=== PATIENT | male | born 1940 | race Caucasian/White ===

== ENCOUNTER 2019-05-24 09:45 | Outpatient (CLI) | payer MEDICARE ==
[2019-05-24 10:54] LABS: #Eosinphils 0.2 thou/uL (0.0-0.7); #Lymphocytes 2.4 thou/uL (1.20-3.40); #Monocytes 0.8 thou/uL (0.11-0.59); #Neutrophils 2.3 thou/uL (1.40-6.50); %Basophils 0.2 % (0.0-1.0); %Eosinophils 3.2 % (0.0-10.0); %Monocytes 13.9 % (0.0-10.0); %Neutrophils 40.7 % (42.0-75.0); Hemoglobin 13.8 g/dL (14.0-18.0); Mean Corpuscular HGB CONC 32.6 g/dL (32.0-36.0); Mean Corpuscular Hemoglobin 30.8 pg (27.0-31.0); Mean Corpuscular Volume 94.4 fL (78.0-98.0); Mean Platelet Volume 6.7 fL (7.4-10.4); Platelet Count 163 thou/uL (130-400); Red Blood Cell (RBC) Count 4.47 mill/uL (4.70-6.10); White Blood Cell (WBC) Count 5.7 thou/uL (4.8-10.8)
[2019-05-24 11:14] LABS: Anion Gap 10 mmol/L (10-20); BUN (Urea Nitrogen) 12 mg/dL (8.4-25.7); Calc. Creatinine Clearance 0 mL/min (70-130); Calcium 9.2 mg/dL (7.8-10.44); Carbon Dioxide 26 mmol/L (23-31); Chloride 109 mmol/L (98-107); Estimated GFR-MDRD 79; Glucose 89 mg/dL (83-110); Potassium 4.6 mmol/L (3.5-5.1); Sodium 140 mmol/L (136-145)
== END 2019-05-24 09:46 | disposition home or self-care (01) ==
LOC: LABBT 09:45
PROVIDERS: ATTEND Surgery
DX: Z01.818 Encounter for other preprocedural examination (principal); K40.90 Unilateral inguinal hernia, without obstruction or gangrene, not specified as recurrent
CPT/HCPCS: 80048; 85025; 93005; 93010

== ENCOUNTER 2019-06-01 05:37 | Day surgery (SDC) | payer MEDICARE ==
[2019-05-24 09:58] VITALS: BMI 24.3
[2019-06-01] MEDS ORDERED: Bupivacaine/Epinephrine 0.25% 30 ML VIAL ONE (06:46)
--- NOTE | 2019-06-05 08:40 | EKG ---
Test Reason : PREOP Blood Pressure : / mmHG Vent. Rate : 054 BPM Atrial Rate : 054 BPM P-R Int : 190 ms QRS Dur : 098 ms QT Int : 476 ms P-R-T Axes : 022 002 014 degrees QTc Int : 451 ms Sinus bradycardia with occasional Premature ventricular complexes Otherwise normal ECG When compared with ECG of 24-MAY-2019 10:17, Minimal criteria for Anterior infarct are no longer Present Confirmed by DR. Adrián SNEED ([id number]) on 06/05/2019 8:39:56 AM Referred By: ANILA Confirmed By:DR. Adrián SNEED
--- NOTE | 2019-06-05 08:40 | EKG ---
Test Reason : PREOP Blood Pressure : / mmHG Vent. Rate : 061 BPM Atrial Rate : 061 BPM P-R Int : 196 ms QRS Dur : 096 ms QT Int : 460 ms P-R-T Axes : 056 -13 007 degrees QTc Int : 463 ms Sinus rhythm with marked sinus arrhythmia with occasional Premature ventricular complexes Otherwise normal ECG When compared with ECG of 01-JUN-2019 06:51, (Unconfirmed) No significant change was found Confirmed by DR. Adrián SNEED ([id number]) on 06/05/2019 8:40:11 AM Referred By: ANILA Confirmed By:DR. Adrián SNEED
== END 2019-06-01 08:28 | disposition home or self-care (01) ==
LOC: SDC 05:37
PROVIDERS: ATTEND Surgery
DX: K40.90 Unilateral inguinal hernia, without obstruction or gangrene, not specified as recurrent (principal); Z53.09 Procedure and treatment not carried out because of other contraindication
CPT/HCPCS: 93005; 93010

== ENCOUNTER 2019-06-28 12:09 | Day surgery (SDC) | payer MEDICARE ==
[2019-06-28] MEDS ORDERED: Bupivacaine HCl 0.5%/Epinephrine 1:200,000/PF 30 ml Vial ONE ×2 (16:00→16:06)
[2019-06-28] MEDS ORDERED: Bupivacaine/Epinephrine 0.25% 30 ML VIAL ONE (16:06)
[2019-06-28] MEDS ORDERED: Lidocaine 2% PF 5 ML VIAL ONE (16:06)
[2019-06-28] MEDS ORDERED: Bupivacaine PF 0.5% 30 ML VIAL ONE (16:28)
[2019-06-28] MEDS ORDERED: Fentanyl 100 MCG/2 ML VIAL ONE (16:29)
--- NOTE | 2019-06-28 17:57 | OP ---
DATE OF PROCEDURE: 06/28/2019 PREOPERATIVE DIAGNOSIS: Right inguinal hernia. POSTOPERATIVE DIAGNOSIS: Right inguinal hernia. PROCEDURE PERFORMED: Right inguinal hernia repair with mesh, PHS extended. ANESTHESIA: General. ESTIMATED BLOOD LOSS: Minimal. COMPLICATIONS: None. SPECIMEN: None. FINDINGS: Right inguinal hernia. DESCRIPTION OF PROCEDURE: The patient was taken to the operating room and laid supine on the operating room table. After general anesthetic was obtained the bilateral groins and abdomen were shaved, prepped, and draped in a sterile fashion. Oblique incision was made in the right lower quadrant above the pubic tubercle. Cautery was dissected down through Jerry's to expose external oblique. External oblique fibers opened along the course of the external ring. The contents in the inguinal canal were dissected from backside of the external oblique. The ilioinguinal nerve was found and segmentally high, removed to prevent postop pain. Dissection superiorly and medially on the cord showed there to be an indirect hernia sac. This was dissected free from the other cord structures and high ligation was performed using silk. The stump was dunked back down into the preperitoneal space. There was a direct defect as well. The preperitoneal space was bluntly entered through the direct defect and bluntly dissected using unraveled Ray-Megan. PHS extended mesh brought into a sterile field. The underlay was placed in the preperitoneal space, its fiber was laid out flat against the posterior abdominal wall. The overlay was laid in the inguinal floor. The overlay was cut laterally to incorporate the internal ring. The overlay was sewn distally to the pubic tubercle, medially to the transverse arch, laterally to the shelving edge of inguinal ligament. The 2 ends of the cut mesh were reapproximated at the shelving edge of the inguinal ligament to reform the internal ring. The wound was irrigated. Local anesthetic was applied. Tunnel catheter for postop pain started from above the incision, left on top of the mesh. The external oblique was closed using 3-0 Vicryl, Jerry's was closed using 3-0 Vicryl. Skin was closed using running 4-0 Monocryl and Dermabond. The patient was sent to Recovery in stable condition. All instrument counts, needle counts, and lap counts were correct. Job ID: [id number]
[2019-06-28] MEDS ORDERED: HYDROcodone/Acetaminophen 5/325 mg Tablet ONE (18:51)
== END 2019-06-28 19:35 | disposition home or self-care (01) ==
LOC: SDC 12:09
PROVIDERS: ATTEND Surgery
PROC: 0YU50JZ Supplement Right Inguinal Region with Synthetic Substitute, Open Approach (ICD-10-PCS; principal; 2019-06-28)
DX: K40.90 Unilateral inguinal hernia, without obstruction or gangrene, not specified as recurrent (principal); I10 Essential (primary) hypertension; G47.30 Sleep apnea, unspecified; I48.0 Paroxysmal atrial fibrillation; I49.5 Sick sinus syndrome; Z79.899 Other long term (current) drug therapy; Z87.891 Personal history of nicotine dependence
CPT/HCPCS: A4306; C1781; J0670; J0690; J2001; J3010; S0020